=== PATIENT | female | born 1990 | race Caucasian/White ===

== ENCOUNTER 2019-03-23 01:07 | Inpatient (IN) ==
[2019-03-23] MEDS ORDERED: OXYTOCIN 30 UNITS/500 ML BAG IV PRN ×2 (01:49→17:39)
--- NOTE | 2019-03-23 01:49 | History & Physical Report ---
Date of Service March 23, 2019 Assessment & Plan (1) Prolonged , antepartum: Will monitor FHT, continue cervical ripening with maharaj bulb. When able to accomodate IOL with staffing, and if FHT stable, will begin pitocin. History of Present Illness Chief Complaint: vaginal bleeding Primary Care Provider: NATE PCP 28yo @ 40 2/7 presents with vaginal bleeding after insertion of maharaj bulb. She states she had bright red bleeding from the vagina, soaked a pad. She was concerned so she came back to L&D. complicated by obesity. + movement. No leaking of fluid. Irregular ctx. Allergies Allergy/AdvReac Type Severity Reaction Status Date / Time Penicillins Allergy Hives Verified 03/22/19 22:11 sertraline [From Zoloft] Allergy Anxiety Verified 03/22/19 22:11 Tetracyclines Allergy Hives Verified 03/22/19 22:11 Home Medications Home Medications Medication Instructions Recorded Confirmed Type [id number] 3-fat com #1 27 cap PO cap 02/28/19 03/22/19 History mg-1 mg-300 mg capsule hydrocortisone-pramoxine 2.5 %-1 % 1 appln NE .COMPLEX PRN 03/03/19 03/22/19 History rectal cream duloxetine PO 03/11/19 03/22/19 History Patient History Social History marital status: Single Feels Safe at Home: Yes Smoking Status: Never smoker Hx Alcohol Use: No Hx Substance Use: No Review of Systems All systems reviewed & are unremarkable except as noted in HPI & below Physical Exam Physical Exam: Gen: AAOx3 NAD CV: RRR L: CTAB Abd: soft, gravid, NTTP Ext: no edema Maharaj bulb still in place, there is dark red blood in tubing. No current bleeding. FHT Cat 1 Datil irreg Results & Data Vital Signs (Past 12 Hours) Vital Signs Pulse BP 03/23/19 01:32 75 134/78
[2019-03-23] MEDS ORDERED: BUTORPHANOL TARTRATE 1 MG/ML VIAL IV PRN (01:58)
[2019-03-23 02:23] LABS: Hematocrit (blood only) 32.3 % (37-47); Hemoglobin 10.9 g/dL (12.0-16.0); Mean Corpuscular Hgb Conc 33.7 g/dL (32-36); Mean Corpuscular Volume 84.6 fL (80-100); Mean Platelet Volume 10.7 fL (7.4-10.4); Platelet Count 308 K/uL (130-400); RDW Coefficient of Variation 13.7 % (11.5-14.5); RDW Standard Deviation 41.7 fL (36.4-46.3); Red Blood Count 3.82 M/uL (4.2-5.4); White Blood Count 12.72 K/uL (4.8-10.8)
[2019-03-23] MEDS: LACTATED RINGER'S 1,000 ML IV PRN ×2 (04:37→14:47)
[2019-03-23] MEDS: OXYTOCIN 30 UNITS/500 ML BAG IV PRN ×2 (04:57→06:59)
--- NOTE | 2019-03-23 06:59 | Obstetrical Progress Note ---
Date of Service March 23, 2019 Subjective Castaneda bulb has fallen out. No further bleeding. Cervix 5/80/-2 per RN FHT Cat 1 Axson Q 3 min Continue pitocin. Results & Data Vital Signs (Past 12 Hours) Vital Signs Temp Pulse Resp BP 03/23/19 06:00 83 18 122/58 L 03/23/19 05:30 20 03/23/19 05:00 18 03/23/19 04:47 65 117/60 03/23/19 01:33 36.6 C 75 18 134/78 03/23/19 01:32 36.6 C 75 18 134/78 PG Care Time/CCT Total # of Minutes Spent Total Time Spent with Patient: Total time spent is greater than 50% in coordination of care (as documented) at patient's floor/unit and/or counseling patient:
[2019-03-23] MEDS ORDERED: ePHEDrine sulfate 50 MG/ML AMP ONE (07:11)
[2019-03-23] MEDS ORDERED: BUPIVACAINE 0.25% 30 ML VIAL ONE (07:11)
[2019-03-23] MEDS ORDERED: fentaNYL 2MCG/ML ROPIV 1.25MG/ML 100 ML BAG EPI ONE (07:12)
[2019-03-23] MEDS ORDERED: fentaNYL citrate 100 MCG/2 ML VIAL ONE (07:12)
--- NOTE | 2019-03-23 08:38 | Anesthesiology Consultation ---
Date of Service March 23, 2019 Assessment & Plan (1) Encounter for pre-operative examination: Chart Review Chart Review: Patient NOT seen in Pre Admission Testing and Acceptable Risk for Labor Epidural Consults Requested none ASA ASA3 History Height/Weight Height: 5 ft 2 in Weight: 118.572 kg Allergies Allergy/AdvReac Type Severity Reaction Status Date / Time Penicillins Allergy Hives Verified 03/22/19 22:11 sertraline [From Zoloft] Allergy Anxiety Verified 03/22/19 22:11 Tetracyclines Allergy Hives Verified 03/22/19 22:11 Medications Home Medications Medication Instructions Recorded Confirmed Last Taken citalopram 10 mg PO DAILY 03/23/19 03/23/19 03/21/19 08:00 vit no.[id number] 1 tab PO DAILY 03/23/19 03/23/19 03/21/19 21:00 [ Vitamin] Active Medications Generic Name Dose Route Start Last Admin Trade Name Freq PRN Reason Stop Dose Admin Butorphanol Tartrate 1 mg 03/23/19 01:58 03/23/19 02:15 Stadol IV 04/22/19 01:57 1 mg Q2HWA PRN Administration Pain Lactated Ringer's 1,000 mls @ 125 mls/hr 03/23/19 01:49 03/23/19 07:44 Lr IV 03/25/19 01:48 125 mls/hr .Q8H PRN Infusion L&D Protocol Protocol Oxytocin 30 units in 500 mls @ 9 mls/hr 03/23/19 01:52 03/23/19 07:30 Pitocin IV 03/25/19 01:51 0.54 units/hr .Q24H PRN 9 mls/hr Labor Induction/Augmentation Titration Protocol 0.54 UNITS/HR Past Medical History Medical History Anxiety and depression History of varicella Past Family History Family History Mother Anxiety and depression Father Anxiety and depression Aunt Breast cancer Grandfather (Paternal) Colorectal cancer Deep vein thrombosis Past Surgical History Surgical History History of gastric bypass S/P cholecystectomy S/P wisdom tooth extraction Social History Smoking Status: Never smoker Do You Dip or Chew Tobacco: No Hx Alcohol Use: No Hx Substance Use: No substance use type: does not use Physical Exam Vital Signs Last Vital Signs Temp 36.6 C 03/23/19 01:33 Pulse 77 03/23/19 08:36 Resp 18 03/23/19 06:00 BP 119/66 03/23/19 08:36 Pulse Ox 99 03/23/19 08:35 Testing Laboratory Results 03/23/19 01:59
[2019-03-23] MEDS ORDERED: ePHEDrine sulfate 50 MG/ML AMP IV PRN (08:41)
[2019-03-23] MEDS ORDERED: NALOXONE HCL 0.4 MG/1 ML VIAL/CARP IV PRN (08:41)
[2019-03-23] MEDS ORDERED: DiphenhydrAMINE HCL 50 MG/ML VIAL IV PRN (08:41)
[2019-03-23] MEDS ORDERED: NALOXONE HCL 1 MG in SODIUM CHLORIDE 0.9% 1000ML 1,000 ML IV PRN (08:41)
[2019-03-23] MEDS ORDERED: fentaNYL 2MCG/ML ROPIV 1.25MG/ML 100 ML BAG EPI PRN (08:41)
[2019-03-23] MEDS ORDERED: NALBUPHINE HCL INJ 10 MG/ML AMP IV PRN (08:41)
--- NOTE | 2019-03-23 10:32 | Labor Progress Brief Note ---
Date of Service March 23, 2019 Subjective Reason For Note: Change In Status Change of shift note: The patient is a 28-year-old 1 para 0 at 40+ weeks gestational age who presented to labor and delivery after cervical Castaneda bulb placement for labor evaluation. Patient was deemed to be in active labor and was admitted. The patient became uncomfortable and had a epidural placed by anesthesia with good pain control. Contractions were augmented with Pitocin. Assessment & Plan (1) Prolonged , antepartum: Intrauterine pressure catheter placed to better monitor contractions. Will continue increasing Pitocin until active labor. If Pitocin gets to 40 milliunits/min will reassess. heart rate tracing category 2 with variability and accelerations. All questions answered of the patient. Physical Exam Physical Exam: Cervix: 5/80/-2, AROM for meconium, IUPC placed Results & Data Vital Signs (Past 12 Hours) Vital Signs Temp Pulse Resp BP Pulse Ox 03/23/19 10:25 71 98 03/23/19 10:20 66 98 03/23/19 10:15 71 98 03/23/19 10:10 65 97 03/23/19 10:06 75 133/71 03/23/19 10:05 78 98 03/23/19 10:00 72 98 03/23/19 09:55 77 97 03/23/19 09:51 74 124/64 03/23/19 09:50 70 97 03/23/19 09:45 77 97 03/23/19 09:40 77 98 03/23/19 09:36 77 113/58 L 03/23/19 09:35 82 97 03/23/19 09:30 72 98 03/23/19 09:25 78 98 03/23/19 09:23 83 108/55 L 03/23/19 09:20 80 97 03/23/19 09:15 71 98 03/23/19 09:10 79 98 03/23/19 09:07 75 125/65 03/23/19 09:05 74 97 03/23/19 09:00 68 97 03/23/19 08:55 80 97 03/23/19 08:51 67 118/64 03/23/19 08:50 65 97 03/23/19 08:45 77 98 03/23/19 08:40 70 96 03/23/19 08:36 77 119/66 03/23/19 08:35 80 99 03/23/19 08:30 69 98 03/23/19 08:28 67 113/69 03/23/19 08:26 64 105/63 03/23/19 08:25 77 98 03/23/19 08:24 151 H 105/59 L 03/23/19 08:22 78 100/55 L 03/23/19 08:20 74 98 03/23/19 08:19 95 H 124/79 03/23/19 08:17 75 121/67 03/23/19 08:15 80 117/70 98 03/23/19 08:13 78 127/64 03/23/19 08:11 82 138/73 03/23/19 08:10 88 97 03/23/19 08:09 86 129/76 03/23/19 08:07 95 H 123/74 03/23/19 08:05 92 H 153/67 H 96 03/23/19 08:04 104 H 94 03/23/19 08:03 86 127/76 03/23/19 08:01 125/67 03/23/19 08:00 81 98 03/23/19 07:59 78 130/74 03/23/19 07:57 87 128/73 03/23/19 07:55 80 99 03/23/19 07:50 85 98 03/23/19 07:45 72 98 03/23/19 07:40 77 99 03/23/19 07:29 81 135/86 03/23/19 06:59 120/68 03/23/19 06:00 83 18 122/58 L 03/23/19 05:30 20 03/23/19 05:00 18 03/23/19 04:47 65 117/60 03/23/19 01:33 97.9 F 75 18 134/78 03/23/19 01:32 97.9 F 75 18 134/78
--- NOTE | 2019-03-23 15:36 | Labor Progress Brief Note ---
Date of Service March 23, 2019 Subjective Reason For Note: Monitor Concern Evaluate the tracing for late decelerations Assessment & Plan (1) Prolonged , antepartum: - tracing reviewed, Cat II, variability and accelerations with digital exam - patient making progress - will re-start pitocin at 1/2 dose after rest - doing well Physical Exam Physical Exam: Cx: right lateral lip/ (+)1-(+)2 with ctx Results & Data Vital Signs (Past 12 Hours) Vital Signs Temp Pulse Resp BP Pulse Ox 03/23/19 15:30 70 98 03/23/19 15:25 82 97 03/23/19 15:22 74 113/59 L 03/23/19 15:20 77 97 03/23/19 15:15 71 98 03/23/19 15:10 75 97 03/23/19 15:05 86 121/75 98 03/23/19 15:03 98.4 F 18 03/23/19 15:00 81 99 03/23/19 14:55 87 99 03/23/19 14:51 77 134/73 03/23/19 14:50 77 99 03/23/19 14:45 76 98 03/23/19 14:40 80 98 03/23/19 14:37 80 127/72 03/23/19 14:35 79 98 03/23/19 14:30 77 98 03/23/19 14:25 74 98 03/23/19 14:21 75 120/58 L 03/23/19 14:20 77 99 03/23/19 14:15 76 99 03/23/19 14:10 79 99 03/23/19 14:06 75 133/74 03/23/19 14:05 74 99 03/23/19 14:00 72 98 03/23/19 13:55 79 98 03/23/19 13:51 74 126/69 03/23/19 13:50 75 98 03/23/19 13:45 79 97 03/23/19 13:40 88 98 03/23/19 13:35 70 121/63 98 03/23/19 13:30 72 97 03/23/19 13:25 66 97 03/23/19 13:21 68 119/63 03/23/19 13:20 68 97 03/23/19 13:15 78 99 03/23/19 13:10 75 98 03/23/19 13:05 81 122/64 98 03/23/19 13:00 97 H 98 03/23/19 12:55 82 98 03/23/19 12:54 74 123/60 03/23/19 12:50 77 98 03/23/19 12:45 69 98 03/23/19 12:40 73 99 03/23/19 12:36 75 122/82 03/23/19 12:35 73 99 03/23/19 12:30 64 99 03/23/19 12:25 74 98 03/23/19 12:22 68 136/62 03/23/19 12:20 71 99 03/23/19 12:15 65 98 03/23/19 12:10 71 98 03/23/19 12:05 74 118/66 98 03/23/19 12:00 94 H 99 03/23/19 11:55 98.4 F 72 18 98 03/23/19 11:52 74 106/61 03/23/19 11:50 67 96 03/23/19 11:45 66 97 03/23/19 11:40 66 97 03/23/19 11:37 66 104/56 L 03/23/19 11:35 66 97 03/23/19 11:30 68 20 97 03/23/19 11:25 68 98 03/23/19 11:21 70 115/67 03/23/19 11:20 68 98 03/23/19 11:15 77 97 03/23/19 11:10 71 99 03/23/19 11:06 73 114/62 03/23/19 11:05 69 98 03/23/19 11:00 78 98 03/23/19 10:58 18 03/23/19 10:55 84 99 03/23/19 10:51 70 135/67 03/23/19 10:50 65 99 03/23/19 10:45 70 98 03/23/19 10:40 74 98 03/23/19 10:36 66 139/66 03/23/19 10:35 68 98 03/23/19 10:32 70 115/72 03/23/19 10:30 81 97 03/23/19 10:29 18 03/23/19 10:25 71 98 03/23/19 10:20 66 98 03/23/19 10:15 71 98 08/21/19 10:10 65 97 03/23/19 10:06 75 133/71 03/23/19 10:05 78 98 03/23/19 10:00 72 98 03/23/19 09:59 18 03/23/19 09:55 98.2 F 77 97 03/23/19 09:51 74 124/64 03/23/19 09:50 70 97 03/23/19 09:45 77 97 03/23/19 09:40 77 98 03/23/19 09:36 77 113/58 L 03/23/19 09:35 82 97 03/23/19 09:30 72 18 98 03/23/19 09:25 78 98 03/23/19 09:23 83 108/55 L 03/23/19 09:20 80 97 03/23/19 09:15 71 98 03/23/19 09:10 79 98 03/23/19 09:07 75 125/65 03/23/19 09:05 74 97 03/23/19 09:00 68 97 03/23/19 08:59 18 03/23/19 08:55 80 97 03/23/19 08:51 67 118/64 03/23/19 08:50 65 97 03/23/19 08:45 77 98 03/23/19 08:40 70 96 03/23/19 08:36 77 119/66 03/23/19 08:35 80 99 03/23/19 08:31 20 03/23/19 08:30 69 98 03/23/19 08:28 67 113/69 03/23/19 08:26 64 105/63 03/23/19 08:25 77 98 03/23/19 08:24 151 H 105/59 L 03/23/19 08:22 78 100/55 L 03/23/19 08:20 74 98 03/23/19 08:19 95 H 124/79 03/23/19 08:17 75 121/67 03/23/19 08:15 80 117/70 98 03/23/19 08:13 78 127/64 03/23/19 08:11 82 138/73 03/23/19 08:10 88 97 03/23/19 08:09 86 129/76 03/23/19 08:07 95 H 123/74 03/23/19 08:05 92 H 153/67 H 96 03/23/19 08:04 104 H 94 03/23/19 08:03 86 127/76 03/23/19 08:01 125/67 03/23/19 08:00 81 98 03/23/19 07:59 78 130/74 03/23/19 07:57 87 128/73 03/23/19 07:55 80 99 03/23/19 07:50 85 98 03/23/19 07:45 72 98 03/23/19 07:40 77 99 03/23/19 07:29 81 135/86 03/23/19 06:59 120/68 03/23/19 06:00 83 18 122/58 L 03/23/19 05:30 20 03/23/19 05:00 18 03/23/19 04:47 65 117/60
--- NOTE | 2019-03-23 16:36 | Labor Progress Brief Note ---
Date of Service March 23, 2019 Subjective Reason For Note: Routine Evaluation Assessment & Plan (1) Prolonged , antepartum: - tracing Cat II - patient to begin 2nd stage Physical Exam Physical Exam: Cervix: Complete/(+)2/(+)3 Results & Data Vital Signs (Past 12 Hours) Vital Signs Temp Pulse Resp BP Pulse Ox 03/23/19 16:30 88 98 03/23/19 16:25 95 H 98 03/23/19 16:22 125 H 145/84 H 03/23/19 16:20 84 98 03/23/19 16:10 82 99 03/23/19 16:06 90 112/57 L 03/23/19 16:05 91 H 99 03/23/19 16:00 83 99 03/23/19 15:55 88 99 03/23/19 15:51 85 123/58 L 03/23/19 15:50 85 98 03/23/19 15:45 81 97 03/23/19 15:40 78 97 03/23/19 15:36 87 117/57 L 03/23/19 15:35 86 97 03/23/19 15:30 70 98 03/23/19 15:25 82 97 03/23/19 15:22 74 113/59 L 03/23/19 15:20 77 97 03/23/19 15:15 71 98 03/23/19 15:10 75 97 03/23/19 15:05 86 121/75 98 03/23/19 15:03 98.4 F 18 03/23/19 15:00 81 99 03/23/19 14:55 87 99 03/23/19 14:51 77 134/73 03/23/19 14:50 77 99 03/23/19 14:45 76 98 03/23/19 14:40 80 98 03/23/19 14:37 80 127/72 03/23/19 14:35 79 98 03/23/19 14:30 77 98 03/23/19 14:25 74 98 03/23/19 14:21 75 120/58 L 03/23/19 14:20 77 99 03/23/19 14:15 76 99 03/23/19 14:10 79 99 03/23/19 14:06 75 133/74 03/23/19 14:05 74 99 03/23/19 14:00 72 98 03/23/19 13:55 79 98 03/23/19 13:51 74 126/69 03/23/19 13:50 75 98 03/23/19 13:45 79 97 03/23/19 13:40 88 98 03/23/19 13:35 70 121/63 98 03/23/19 13:30 72 97 03/23/19 13:25 66 97 03/23/19 13:21 68 119/63 03/23/19 13:20 68 97 03/23/19 13:15 78 99 03/23/19 13:10 75 98 03/23/19 13:05 81 122/64 98 03/23/19 13:00 97 H 98 03/23/19 12:55 82 98 03/23/19 12:54 74 123/60 03/23/19 12:50 77 98 03/23/19 12:45 69 98 03/23/19 12:40 73 99 03/23/19 12:36 75 122/82 03/23/19 12:35 73 99 03/23/19 12:30 64 99 03/23/19 12:25 74 98 03/23/19 12:22 68 136/62 03/23/19 12:20 71 99 03/23/19 12:15 65 98 03/23/19 12:10 71 98 03/23/19 12:05 74 118/66 98 03/23/19 12:00 94 H 99 03/23/19 11:55 98.4 F 72 18 98 03/23/19 11:52 74 106/61 03/23/19 11:50 67 96 03/23/19 11:45 66 97 03/23/19 11:40 66 97 03/23/19 11:37 66 104/56 L 03/23/19 11:35 66 97 03/23/19 11:30 68 20 97 03/23/19 11:25 68 98 03/23/19 11:21 70 115/67 03/23/19 11:20 68 98 03/23/19 11:15 77 97 03/23/19 11:10 71 99 03/23/19 11:06 73 114/62 03/23/19 11:05 69 98 03/23/19 11:00 78 98 03/23/19 10:58 18 03/23/19 10:55 84 99 03/23/19 10:51 70 135/67 03/23/19 10:50 65 99 03/23/19 10:45 70 98 03/23/19 10:40 74 98 03/23/19 10:36 66 139/66 03/23/19 10:35 68 98 03/23/19 10:32 70 115/72 03/23/19 10:30 81 97 03/23/19 10:29 18 03/23/19 10:25 71 98 03/23/19 10:20 66 98 03/23/19 10:15 71 98 03/23/19 10:10 65 97 03/23/19 10:06 75 133/71 03/23/19 10:05 78 98 03/23/19 10:00 72 98 03/23/19 09:59 18 03/23/19 09:55 98.2 F 77 97 03/23/19 09:51 74 124/64 03/23/19 09:50 70 97 03/23/19 09:45 77 97 03/23/19 09:40 77 98 03/23/19 09:36 77 113/58 L 03/23/19 09:35 82 97 03/23/19 09:30 72 18 98 03/23/19 09:25 78 98 03/23/19 09:23 83 108/55 L 03/23/19 09:20 80 97 03/23/19 09:15 71 98 03/23/19 09:10 79 98 03/23/19 09:07 75 125/65 03/23/19 09:05 74 97 03/23/19 09:00 68 97 03/23/19 08:59 18 03/23/19 08:55 80 97 03/23/19 08:51 67 118/64 03/23/19 08:50 65 97 03/23/19 08:45 77 98 03/23/19 08:40 70 96 03/23/19 08:36 77 119/66 03/23/19 08:35 80 99 03/23/19 08:31 20 03/23/19 08:30 69 98 03/23/19 08:28 67 113/69 03/23/19 08:26 64 105/63 03/23/19 08:25 77 98 03/23/19 08:24 151 H 105/59 L 03/23/19 08:22 78 100/55 L 03/23/19 08:20 74 98 03/23/19 08:19 95 H 124/79 03/23/19 08:17 75 121/67 03/23/19 08:15 80 117/70 98 03/23/19 08:13 78 127/64 03/23/19 08:11 82 138/73 03/23/19 08:10 88 97 03/23/19 08:09 86 129/76 03/23/19 08:07 95 H 123/74 03/23/19 08:05 92 H 153/67 H 96 03/23/19 08:04 104 H 94 03/23/19 08:03 86 127/76 03/23/19 08:01 125/67 03/23/19 08:00 81 98 03/23/19 07:59 78 130/74 03/23/19 07:57 87 128/73 03/23/19 07:55 80 99 03/23/19 07:50 85 98 03/23/19 07:45 72 98 03/23/19 07:40 77 99 03/23/19 07:29 81 135/86 03/23/19 06:59 120/68 03/23/19 06:00 83 18 122/58 L 03/23/19 05:30 20 03/23/19 05:00 18 03/23/19 04:47 65 117/60
--- NOTE | 2019-03-23 17:32 | Delivery Summary ---
Vaginal Delivery Summary Date of Service March 23, 2019 Findings: viable female with Apgars of 4 and 9, arterial venous cord gas es pending, placenta delivered spontaneously, midline episiotomy repaired with 4-0 Vicryl in routine fashion estimated blood loss 300 cc Labor note: The patient is a 28-year-old 1 para 0 with an EDC of 21 March at 40+ weeks gestational age who presented for a postdates induction. The patient had a cervical Castaneda placed in the evening of 22 March and return for evaluation of bleeding. The Castaneda catheter was still in place in the cervix and the patient was admitted for further evaluation and induction of labor. The patient has had a benign course. She transferred her obstetrical care to our practice at 28 weeks gestational age. Laboratory values for the show blood type of O+ antibody negative rubella immune hepatitis B negative she had a normal 1 hour Glucola negative third trimester beta strep culture. The cervical Castaneda dislodged and the patient was started on Pitocin per induction protocol. She progressed into a regular labor pattern anesthesia was consulted and an epidural was placed. Delivering physician assumed care for the patient at this point. Cervical examination was 5 cm 80% artificial rupture membranes for thin meconium intrauterine pressure catheter was placed to help monitor her contractions. The patient progressed to full dilatation and began her second stage she pushed for approximately 30 minutes delivering the viable female infant the baby was taken to the resuscitation stand for evaluation positive pressure ventilation was required to establish her breathing pattern and bring the heart rate up. Pediatrics assumed care for the patient at this point. The patient's placenta delivered spontaneously midline episiotomy is repaired with 4-O and 2 0 Vicryl in routine fashion estimated blood loss was 300 cc sponge needle count was correct.
[2019-03-23 17:36] LABS: Base Excess Cord Arterial Bld -3.7 mEq/L (-9-1.8); CO2 Cord Arterial Blood 64 mmHg (39.1-73.5); HCO3 Cord Arterial Blood 26 mmol/L (19.7-28.5); Oxygen Sat Cord Arterial Blood < 60.0 % (<60); pH Cord Arterial Blood 7.22 (7.1-7.38)
[2019-03-23] MEDS ORDERED: HYDROCORTISONE ACETATE 25 MG SUPP PR PRN (17:39)
[2019-03-23] MEDS ORDERED: SUPERCREAM 0.870% 15 GM JAR EXT PRN (17:39)
[2019-03-23] MEDS ORDERED: BENZOCAINE 20% AER SPR 82.5 GM CAN EXT PRN (17:39)
[2019-03-23] MEDS ORDERED: DIPHTHERIA/TETANUS/PERTUSSIS 0.5 ML SYR/VIAL IM ONE (17:39)
[2019-03-23] MEDS ORDERED: ACETAMINOPHEN W/CODEINE #3 1 TAB PO PRN (17:39)
[2019-03-23] MEDS ORDERED: ACETAMINOPHEN 325 MG TAB PO PRN (17:39)
[2019-03-23 17:46] LABS: Base Excess Cord Venous Blood -4.5 mEq/L (-7.7-1.9); Cord Venous Blood HCO3 21 mmol/L (18.4-26.8); Cord Venous Blood PCO2 41 mmHg (30.4-57.2); Cord Venous Blood PO2 23 mmHg (14.1-43.3); Cord Venous Blood pH 7.33 (7.20-7.44)
[2019-03-23 17:47] LABS: O2 Saturation Cord Venous Bld < 60.0 % (<68)
--- NOTE | 2019-03-23 19:11 | Anesthesia Procedure Note ---
Date of Service March 23, 2019 Anesthesia Post Epidural Note Vital Signs Vital Signs: Temp Pulse Resp BP Pulse Ox 36.9 C 95 H 18 140/72 98 03/23/19 15:03 03/23/19 18:35 03/23/19 15:03 03/23/19 18:35 03/23/19 17:20 Pain Intensity Bilateral Abdomen: Pain Intensity: 2 Notes Mental Status: alert / awake / arousable Patient Amnestic to Procedure: Yes Nausea / Vomiting: adequately controlled Pain: adequately controlled Airway Patency, RR, SpO2: stable & adequate BP & HR: stable & adequate Hydration State: stable & adequate Neuraxial Anesthesia: was administered and sensory block is resolving Anesthetic Complications: no major complications apparent and Pt Satisfied with anesthetic care Epidural: Removed without complications and With tip intact
[2019-03-23] MEDS: DOCUSATE SODIUM 100 MG CAP PO SCH (20:30)
[2019-03-23] MEDS: IBUPROFEN 600 MG TAB PO PRN (21:47)
[2019-03-24] MEDS: IBUPROFEN 600 MG TAB PO PRN ×4 (03:14→19:37)
[2019-03-24 06:45] LABS: Hematocrit (blood only) 29.7 % (37-47); Hemoglobin 9.8 g/dL (12.0-16.0); Mean Corpuscular Volume 85.1 fL (80-100); Platelet Count 253 K/uL (130-400); RDW Coefficient of Variation 13.8 % (11.5-14.5); RDW Standard Deviation 42.7 fL (36.4-46.3); Red Blood Count 3.49 M/uL (4.2-5.4); White Blood Count 17.41 K/uL (4.8-10.8)
--- NOTE | 2019-03-24 07:15 | Obstetrical Progress Note ---
Date of Service <Carmella Hernandez MD - Last Filed: 03/24/19 07:15> March 24, 2019 Assessment & Plan <Carmella Hernandez MD - Last Filed: 03/24/19 07:15> (1) Status post vaginal delivery: Sanjana is a 28 yo on PPD 1 after at 40+ - GBS -, Blood Type O+, Rubella immune -Vitals reviewed and WNL -patient is doing clinically well continue to work towards discharge goals - After discharge will have [address] Martinez. Subjective <Carmella Hernadnez MD - Last Filed: 03/24/19 07:15> Ambulation: ambulating normally Voiding: no voiding problems Passing Gas:: Yes Diet Tolerance:: regular diet Lochia:: Moderate Feeding Type:: breast feeding Current Pain Level(1-10): 3 examined at bedside Constitutional: no fever, no chills and no sweats Eyes: no worsening vision Respiratory: no cough and no dyspnea Cardiovascular: no chest pain, no palpitations, no edema and no calf pain Breast: no breast pain Gastrointestinal: no nausea and no vomiting Genitourinary (female): no dysuria and no urinary frequency Neurologic: no headache(s) Physical Exam <Carmella Hernandez MD - Last Filed: 03/24/19 07:15> Constitutional WD/WN, vitals as above no acute distress Respiratory normal respiratory effort, lungs clear to auscultation does not use accessory muscles Auscultation: no crackles, no rales, no rhonchi, no wheezes and no pleural rub Cardiovascular Rate/Rhythm: regular rate and regular rhythm Heart Sounds: normal S1 and normal S2; no gallop, no murmur and no cardiac rub Extremities: no calf tenderness and no pedal edema Gastrointestinal (Abdomen) Inspection/Auscultation: normal bowel sounds; abdomen not distended Percussion/Palpation: abdomen soft Genitourinary Uterus: fundus firm, palpable 1 cm below the uterus Results & Data <Carmella Hernandez MD - Last Filed: 03/24/19 07:15> Vital Signs (Past 12 Hours) Vital Signs Temp Pulse Resp BP Pulse Ox 03/24/19 03:10 36.8 C 80 18 122/83 99 03/23/19 23:45 36.8 C 91 H 16 116/76 97 03/23/19 20:00 37.0 C 110 H 18 119/81 95 <Agusto Gorman Jr, MD, FACOG - Last Filed: 03/24/19 08:05> Co-Signing Physician Notes Resident Physician Supervision Note: I was present with Dr. Gorman during the history and exam. I discussed the case with the resident and agree with the findings and plan as documented in the note. Any exceptions or clarifications are listed here: Routine care, doing well Documented By: Agusto Gorman Jr, MD, FACOG
[2019-03-24] MEDS: DOCUSATE SODIUM 100 MG CAP PO SCH ×2 (08:13→19:37)
[2019-03-24] MEDS: PRENATAL VITAMIN 1 TAB PO SCH (08:13)
[2019-03-24] MEDS ORDERED: CITALOPRAM 20 MG TAB PO SCH (09:00)
[2019-03-24] MEDS ORDERED: BISACODYL 5 MG TABEC PO SCH (20:00)
[2019-03-25] MEDS: IBUPROFEN 600 MG TAB PO PRN ×2 (03:55→09:01)
[2019-03-25 06:30] LABS: Hematocrit (blood only) 30.4 % (37-47); Hemoglobin 9.7 g/dL (12.0-16.0)
--- NOTE | 2019-03-25 06:41 | Obstetrical Progress Note ---
Date of Service <Carmella Hernandez MD - Last Filed: 03/25/19 06:44> March 25, 2019 Assessment & Plan <Carmella Hernandez MD - Last Filed: 03/25/19 06:44> (1) Status post vaginal delivery: Sanjana is a 28 yo on PPD 2 after at 40+ - GBS -, Blood Type O+, Rubella immune -Vitals reviewed and WNL -patient is doing clinically well discharge instructions reviewed; ready for d/c - After discharge will have [address] Martinez. Subjective <Carmella Hernandez MD - Last Filed: 03/25/19 06:44> Ambulation: ambulating normally Voiding: no voiding problems Passing Gas:: Yes Diet Tolerance:: regular diet Lochia:: Small Feeding Type:: breast feeding Current Pain Level(1-10): 2 examined at bedside Constitutional: no fever, no chills and no sweats Respiratory: no cough and no dyspnea Cardiovascular: no chest pain Gastrointestinal: no abdominal pain, no nausea and no vomiting Genitourinary (female): no dysuria and no urinary frequency Neurologic: no headache(s) Physical Exam <Carmella Hernandez MD - Last Filed: 03/25/19 06:44> Constitutional WD/WN, vitals as above no acute distress Neck normal visual inspection Respiratory normal respiratory effort, lungs clear to auscultation does not use accessory muscles Auscultation: no crackles, no rales, no rhonchi, no wheezes and no pleural rub Cardiovascular Rate/Rhythm: regular rate and regular rhythm Heart Sounds: normal S1 and normal S2; no gallop, no murmur and no cardiac rub Extremities: no calf tenderness and no pedal edema Gastrointestinal (Abdomen) Inspection/Auscultation: normal bowel sounds; abdomen not distended Percussion/Palpation: abdomen soft Genitourinary Uterus: firm, fundus palpable 1 cm below umbilicus Results & Data <Carmella Hernandez MD - Last Filed: 03/25/19 06:44> Vital Signs (Past 12 Hours) Vital Signs Temp Pulse Resp BP Pulse Ox 03/24/19 23:05 36.7 C 82 16 125/79 96 03/24/19 19:30 36.6 C 86 20 126/83 98 <Freda Kinsey MD, FACOG - Last Filed: 03/25/19 07:42> Co-Signing Physician Notes Resident Physician Supervision Note: I interviewed and examined the patient. Discussed with Dr. Hernandez and agree with findings and plan as documented in the note. Any exceptions or clarifications are listed here: [None] Documented By: Freda Kinsey MD, FACOG
[2019-03-25] MEDS: PRENATAL VITAMIN 1 TAB PO SCH (09:01)
[2019-03-25] MEDS: DOCUSATE SODIUM 100 MG CAP PO SCH (09:01)
== END 2019-03-25 13:10 | disposition home or self-care (01) | DRG 807 ==
LOC: OPB 01:07 → 4S1 01:10 → 4N 19:52